=== PATIENT | male | born 1950 | race Caucasian/White ===

== ENCOUNTER 2023-04-01 13:01 | Inpatient (IN) | payer MEDICARE ==
[2023-04-01 13:59] LABS: #Monocytes 0.7 thou/uL (0.11-0.59); #Neutrophils 4.4 thou/uL (1.40-6.50); %Basophils 0.6 % (0.0-1.0); %Lymphocytes 21.1 % (21.0-51.0); %Monocytes 10.2 % (0.0-10.0); %Neutrophils 67.3 % (42.0-75.0); Hemoglobin 13.6 g/dL (14.0-18.0); Mean Corpuscular HGB CONC 33.1 g/dL (32.0-36.0); Mean Corpuscular Hemoglobin 31.5 pg (27.0-31.0); Mean Corpuscular Volume 95.1 fl (78.0-98.0); Mean Platelet Volume 9.4 fL (7.4-10.4); Platelet Count 178 10x3/uL (130-400); RBC Distribution Width 14.6 % (11.5-14.5); Red Blood Cell (RBC) Count 4.32 mill/uL (4.70-6.10); White Blood Cell (WBC) Count 6.6 10x3/uL (4.8-10.8)
[2023-04-01 14:21] LABS: ALT (SGPT) 27 U/L (8-55); AST (SGOT) 24 U/L (5-34); Albumin 3.7 g/dL (3.4-4.8); Alkaline Phosphatase 81 U/L (40-110); Anion Gap 10 mmol/L (10-20); BUN (Urea Nitrogen) 13 mg/dL (8.4-25.7); Bilirubin, Total 0.6 mg/dL (0.2-1.2); CK (CPK) 82 U/L (30-200); Calc. Creatinine Clearance 0 mL/min (70-130); Calcium 8.9 mg/dL (7.8-10.44); Carbon Dioxide 22 mmol/L (23-31); Chloride 107 mmol/L (98-107); Estimated GFR 67; Globulin 3.1 g/dL (2.4-3.5); Glucose 160 mg/dL (83-110); Lipase 40 U/L (8-78); Potassium 3.5 mmol/L (3.5-5.1); Protein, Total 6.8 g/dL (5.8-8.1); Sodium 135 mmol/L (136-145)
[2023-04-01 14:34] LABS: Bacteria/HPF None Seen HPF (None Seen); Bilirubin Negative (Negative); Blood, Urine Negative (Negative); CAUTI Indications for Culture Pelvic or flank pain; Clarity Clear (Clear); Glucose, Urine (Dipstick) Normal (Negative); Ketone, Urine Negative (Negative); Leukocyte Negative Leu/uL (Negative); Nitrite Negative (Negative); Protein, Urine (Dipstick) 10 mg/dL (Neg-Trace); RBC/HPF 0-3 HPF (0-3); Specific Gravity, Urine 1.019 (1.002-1.036); Squamous Epithelial 0-3 HPF (0-3); Urobilinogen Normal mg/dL (Less than 2); WBC/HPF 0-3 HPF (0-3)
[2023-04-01 14:35] LABS: Urine Culture Reflex No No
[2023-04-01 14:50] LABS: SARS-CoV-2 NAA Rapid Test Not Detected (NotDetected)
[2023-04-01] MEDS ORDERED: Meclizine HCl 25 MG TAB ONE (15:11)
[2023-04-01] MEDS ORDERED: Aspirin 81 mg Enteric Coated Tablet PO SCH (20:19)
[2023-04-01] MEDS ORDERED: Colchicine 0.6 MG TAB PO PRN ×2 (20:36→20:37)
[2023-04-01 20:45] LABS: CRP (Inflammatory) 5.95 mg/dL (= or < 0.5); Magnesium 1.7 mg/dL (1.6-2.6); Phosphorus 2.8 mg/dL (2.3-4.7)
[2023-04-01] MEDS: Atorvastatin Calcium 40 MG TAB PO SCH (22:03)
[2023-04-01 22:48] VITALS: BMI 28.0
[2023-04-01] MEDS: Benzonatate 100 MG CAP PO PRN (23:43)
[2023-04-02 04:38] LABS: #Eosinphils 0.2 thou/uL (0.0-0.7); #Monocytes 0.8 thou/uL (0.11-0.59); #Neutrophils 2.8 thou/uL (1.40-6.50); %Basophils 0.7 % (0.0-1.0); %Eosinophils 2.7 % (0.0-10.0); %Lymphocytes 31.4 % (21.0-51.0); %Monocytes 14.4 % (0.0-10.0); %Neutrophils 49.7 % (42.0-75.0); Hemoglobin 11.6 g/dL (14.0-18.0); Mean Corpuscular HGB CONC 32.7 g/dL (32.0-36.0); Mean Corpuscular Hemoglobin 31.8 pg (27.0-31.0); Mean Corpuscular Volume 97.3 fl (78.0-98.0); Mean Platelet Volume 9.2 fL (7.4-10.4); Platelet Count 156 10x3/uL (130-400); RBC Distribution Width 14.5 % (11.5-14.5); Red Blood Cell (RBC) Count 3.65 mill/uL (4.70-6.10); White Blood Cell (WBC) Count 5.6 10x3/uL (4.8-10.8)
[2023-04-02 05:06] LABS: Anion Gap 11 mmol/L (10-20); BUN (Urea Nitrogen) 14 mg/dL (8.4-25.7); Calc. Creatinine Clearance 90 mL/min (70-130); Calcium 8.3 mg/dL (7.8-10.44); Carbon Dioxide 24 mmol/L (23-31); Chloride 108 mmol/L (98-107); Estimated GFR 85; Glucose 124 mg/dL (83-110); Magnesium 1.9 mg/dL (1.6-2.6); Potassium 3.7 mmol/L (3.5-5.1); Sodium 139 mmol/L (136-145)
[2023-04-02 05:09] LABS: Phosphorus 3.6 mg/dL (2.3-4.7)
[2023-04-02] MEDS ORDERED: Magnesium 2 GM/50 ML(in water) 2 GM in Premix Bag 1 BAG IVPB SCH (07:45)
[2023-04-02] MEDS ORDERED: AMLODIPINE VALSARTAN PO SCH (09:00)
[2023-04-02] MEDS: Aspirin 81 mg Enteric Coated Tablet PO SCH (09:15)
[2023-04-02] MEDS: Allopurinol 300 MG TAB PO SCH (09:15)
[2023-04-02] MEDS: Amlodipine 5 MG TAB PO SCH (09:15)
[2023-04-02] MEDS: Valsartan 80 MG TAB PO SCH (09:18)
[2023-04-02 11:45] LABS: Syphilis Antibody Nonreactive (Nonreactive); Syphilis Antibody Index 0.04 S/CO (<1.00 Non-Reactive)
[2023-04-02] MEDS: Atorvastatin Calcium 40 MG TAB PO SCH (20:35)
[2023-04-02] MEDS: Benzonatate 100 MG CAP PO PRN (20:40)
[2023-04-03 06:57] LABS: #Basophils 0.1 thou/uL (0.0-0.2); #Eosinphils 0.2 thou/uL (0.0-0.7); #Monocytes 0.6 thou/uL (0.11-0.59); #Neutrophils 3.4 thou/uL (1.40-6.50); %Basophils 0.8 % (0.0-1.0); %Eosinophils 3.6 % (0.0-10.0); %Monocytes 9.8 % (0.0-10.0); Hemoglobin 12.3 g/dL (14.0-18.0); Mean Corpuscular Hemoglobin 31.8 pg (27.0-31.0); Mean Corpuscular Volume 96.4 fl (78.0-98.0); Mean Platelet Volume 8.8 fL (7.4-10.4); Platelet Count 181 10x3/uL (130-400); RBC Distribution Width 14.5 % (11.5-14.5); Red Blood Cell (RBC) Count 3.87 mill/uL (4.70-6.10); White Blood Cell (WBC) Count 6.1 10x3/uL (4.8-10.8)
[2023-04-03 07:24] LABS: Anion Gap 11 mmol/L (10-20); BUN (Urea Nitrogen) 11 mg/dL (8.4-25.7); Calc. Creatinine Clearance 95 mL/min (70-130); Calcium 8.7 mg/dL (7.8-10.44); Carbon Dioxide 24 mmol/L (23-31); Chloride 108 mmol/L (98-107); Estimated GFR 90; Glucose 102 mg/dL (83-110); Potassium 4.1 mmol/L (3.5-5.1); Sodium 139 mmol/L (136-145)
[2023-04-03] MEDS: Valsartan 80 MG TAB PO SCH (07:59)
[2023-04-03] MEDS: Aspirin 81 mg Enteric Coated Tablet PO SCH (07:59)
[2023-04-03] MEDS: Amlodipine 5 MG TAB PO SCH (07:59)
[2023-04-03] MEDS: Allopurinol 300 MG TAB PO SCH (07:59)
[2023-04-03] MEDS ORDERED: Polyethylene Glycol 3350 17 GM Packet PO SCH (17:15)
[2023-04-03] MEDS: Atorvastatin Calcium 40 MG TAB PO SCH (22:22)
[2023-04-04 07:01] LABS: #Basophils 0.1 thou/uL (0.0-0.2); #Monocytes 0.5 thou/uL (0.11-0.59); #Neutrophils 4.9 thou/uL (1.40-6.50); %Basophils 0.7 % (0.0-1.0); %Neutrophils 68.7 % (42.0-75.0); Mean Corpuscular HGB CONC 33.4 g/dL (32.0-36.0); Mean Corpuscular Volume 95.8 fl (78.0-98.0); Mean Platelet Volume 8.9 fL (7.4-10.4); Platelet Count 206 10x3/uL (130-400); RBC Distribution Width 14.2 % (11.5-14.5); Red Blood Cell (RBC) Count 4.06 mill/uL (4.70-6.10); White Blood Cell (WBC) Count 7.1 10x3/uL (4.8-10.8)
[2023-04-04 07:24] LABS: Anion Gap 14 mmol/L (10-20); BUN (Urea Nitrogen) 14 mg/dL (8.4-25.7); Calc. Creatinine Clearance 92 mL/min (70-130); Calcium 8.9 mg/dL (7.8-10.44); Carbon Dioxide 21 mmol/L (23-31); Chloride 109 mmol/L (98-107); Estimated GFR 88; Glucose 111 mg/dL (83-110); Potassium 4.3 mmol/L (3.5-5.1); Sodium 140 mmol/L (136-145)
[2023-04-04] MEDS ORDERED: Polyethylene Glycol 3350 17 GM Packet PO SCH (09:00)
[2023-04-04] MEDS: Allopurinol 300 MG TAB PO SCH (09:06)
[2023-04-04] MEDS: Valsartan 80 MG TAB PO SCH (09:06)
[2023-04-04] MEDS: Aspirin 81 mg Enteric Coated Tablet PO SCH (09:06)
[2023-04-04] MEDS: Amlodipine 5 MG TAB PO SCH (09:06)
[2023-04-04 10:36] LABS: Campy jejuni + coli by PCR Negative (Negative); STEC Shiga Toxin 1+2 Negative (Negative); Salmonella spp. by PCR Negative (Negative); Shigella spp + EIEC by PCR Negative (Negative)
[2023-04-04 12:03] VITALS: TEMP 98.4
[2023-04-04 14:00] VITALS: BP 138/84
== END 2023-04-04 14:01 | disposition home or self-care (01) | DRG 149 ==
LOC: ERS 13:01 → 2SW 17:28 → OBSVTOIN 04-03 10:40
PROVIDERS: ADMIT Family Medicine; ATTEND Family Medicine
PROC: 3E1B78Z Irrigation of Ear using Irrigating Substance, Via Natural or Artificial Opening (ICD-10-PCS; principal; 2023-04-03)
DX: R42 Dizziness and giddiness (principal); E78.5 Hyperlipidemia, unspecified; I10 Essential (primary) hypertension; K13.21 Leukoplakia of oral mucosa, including tongue; R19.7 Diarrhea, unspecified; R73.03 Prediabetes; M1A.9XX0 Chronic gout, unspecified, without tophus (tophi); Z66 Do not resuscitate; K25.9 Gastric ulcer, unspecified as acute or chronic, without hemorrhage or perforation; Z96.642 Presence of left artificial hip joint; J32.3 Chronic sphenoidal sinusitis; Z20.822 Contact with and (suspected) exposure to COVID-19; Z80.9 Family history of malignant neoplasm, unspecified; Z79.899 Other long term (current) drug therapy
CPT/HCPCS: 36415; 36416; 69210; 70450; 70551; 71045; 80048; 80053; 81001; 82274; 82550; 83630; 83690; 83735; 84100; 84443; 84484; 85025; 85652; 86140; 86780; 87324; 87328; 87329; 87449; 87505; 93005; 93880; 96374; G0378; J3475

== ENCOUNTER 2023-04-18 12:03 | Outpatient (CLI) | payer MEDICARE | END 2023-04-18 12:04 | disposition home or self-care (01) | LOC: ULT 12:03 | PROVIDERS: ATTEND Family Medicine | DX: R10.11 Right upper quadrant pain (principal); R19.4 Change in bowel habit | CPT/HCPCS: 76700 ==